=== PATIENT | male | born 1980 | race African-American/Black ===

== ENCOUNTER 2016-04-26 13:32 | Emergency (ER) ==
[2016-04-26 13:39] VITALS: BP 149/96
--- NOTE | 2016-04-26 14:21 | PROVIDER DOCUMENTATION ---
[id number] Abuse/Overdose - General Chief Complaint: Flu Symptoms Stated Complaint: COLD SX Time Seen by Provider: 04/26/16 13:45 Allergies/Adverse Reactions: Allergies Allergy/AdvReac Type Severity Reaction Status Date / Time No Known Allergies Allergy Verified 04/26/16 13:39 Home Medications: Home Medication List Medication Instructions Recorded Confirmed Last Taken Type No Home Medications 04/26/16 04/26/16 Unknown History
--- NOTE | 2016-04-26 14:27 | PROVIDER DOCUMENTATION ---
HPI-EENT General - General Chief Complaint: Flu Symptoms Stated Complaint: COLD SX Time Seen by Provider: 04/26/16 13:45 Allergies/Adverse Reactions: Patient Allergies Allergy/AdvReac Type Severity Reaction Status Date / Time No Known Allergies Allergy Verified 04/26/16 13:39 Home Medications: Home Medication List Medication Instructions Recorded Confirmed Last Taken Type Amoxicillin/Pot Clavulanate 875 mg PO Q12HR #20 tablet 04/26/16 Unknown Rx [Augmentin] Guaifenesin/Dextromethorphan 10 ml PO BID #120 ml 04/26/16 Unknown Rx [Guaifenesin Dm Syrup] - History of Present Illness-EENT General Nature of Presenting Problem: pt presents with 2 day h/o fever, cough, sore throat, sinus pressure and pain. EENT Location: reports: throat, facial Quality of Pain: reports: aching, pressure Severity: reports: mild Onset/Duration: reports: 2 days ago Timing: reports: getting worse Prearrival Treatment: Initiated over the counter meds Associated Symptoms: reports: cough, facial pain/swelling, fever, nasal congestion/drainage, sinus infection, sore throat. denies: poor fluid intake, poor solids intake, tooth pain Similar Symptoms Previously?: No Recently seen or treated by another doctor?: No Review of Systems - Adult - REVIEW OF SYSTEMS - ADULT Constitutional: reports: chills, fever Eyes: denies: blurred vision, double vision Ears, Nose, Mouth & Throat: reports: sinus problem Cardiovascular: reports: no symptoms reported Respiratory: reports: cough Gastrointestinal: denies: diarrhea, nausea, vomiting Genitourinary: reports: no symptoms reported Musculoskeletal: reports: muscle aches Integumentary: reports: no symptoms reported Neurological: denies: numbness, paresthesia All Other Systems: Reviewed and Negative Past History - Adult - PAST MEDICAL HISTORY-ADULT Review of Records: reports: Old Records Reviewed, Nursing Assessment Review, Medications Reviewed, Social history reviewed & non-contributory. - PRIOR SURGERIES/PROCEDURES Surgical/Procedure History: reports: none - SOCIAL HISTORY Smoking: non-smoker Physical Exam- EENT - Physical Exam EENT Initial Vital Signs Reviewed: Yes General Appearance: appears well, alert, no apparent distress Eye Exam: bilateral eye: normal inspection, PERRL, EOMI Ear Exam: bilateral ear: auricle normal, canal normal, TM normal Nasal Exam: normal inspection, sinus tenderness (bilateral maxillary tenderness to palpation) Throat Exam: pharynx normal Neck: non-tender, full range of motion, supple Respiratory: chest non-tender, lungs clear, normal breath sounds Cardiovascular: regular rate, rhythm, no edema Back Exam: normal inspection, no CVA tenderness, no vertebral tenderness Extremity: normal gait, normal inspection Integumentary: normal color, normal turgor, warm/dry Neurologic: grossly normal, no motor/sensory deficits Psych/Mental Status: normal mood/affect, normal thought content, normal thought process, oriented x 3 Progress - PLAN OF CARE/RESULTS Progress/Plan/Lab Results: Vital Signs Temp Pulse Resp BP Pulse Ox 04/26/16 13:37 99.5 F 97 H 18 149/96 97 No Known Allergies Allergy (Verified 04/26/16 13:39) Amoxicillin/Pot Clavulanate [Augmentin] 875 mg PO Q12HR #20 tablet 04/26/16 Guaifenesin/Dextromethorphan [Guaifenesin Dm Syrup] 10 ml PO BID #120 ml Laboratory 04/26/16 13:40 Influenza A (Rapid) NEGATIVE Influenza B (Rapid) NEGATIVE Orders Category Date Time Status Flu [INFLUENZA SCREEN PL] Stat Lab 04/26/16 13:40 Completed Departure - Departure Time of Disposition Order: 14:22 DIAGNOSIS: Sinusitis Qualifiers: Sinusitis location: maxillary Chronicity: acute Recurrence: non-recurrent Qualified Code(s): J01.00 - Acute maxillary sinusitis, unspecified Disposition: HOME 01 Certified Medical Emergency: Emergent Condition: Good Additional Instructions: ED Follow Up Instructions: You have been treated by a care provider in the Emergency Department. These instructions are being provided to you so you can have an understanding of how to care for yourself upon discharge. Upon discharge from the Emergency Department, you are responsible for making arrangements for follow-up care by a physician of your choice. Take all prescribed medications as directed. Return to the Emergency Department immediately for any new or worsening symptoms. You may call the Physician Referral phone number at [phone] to obtain a list of Physicians who are taking new patients. Prescriptions: Amoxicillin/Pot Clavulanate [Augmentin] 875 mg PO Q12HR #20 tablet Guaifenesin/Dextromethorphan [Guaifenesin Dm Syrup] 10 ml PO BID #120 ml Attestation - Physician/ BART Attestation Patient care was provided by Advanced Practice Provider:: Yes Advanced Practice Provider:: Maricarmen Hanson Advanced Practice Provider documentation review:: The Mid-level provider documentation, treatment plan and medical decision making was reviewed by the physician who agrees with all treatment and medical decision making by the MLP.
== END 2016-04-26 14:39 | disposition home or self-care (01) ==
LOC: P.ED 13:32
DX: J01.00 Acute maxillary sinusitis, unspecified (principal); J02.9 Acute pharyngitis, unspecified; R05 Cough; R50.9 Fever, unspecified; R09.81 Nasal congestion; M79.1 Myalgia; R51 Headache
CPT/HCPCS: 87804; 99283